=== PATIENT | female | born 1925 | race Caucasian/White ===

== ENCOUNTER 2016-04-17 13:07 | Inpatient (IN) | payer MEDICARE, BC ==
[~2016-04-17] VITALS: Ht 160 cm; Wt 90.7 kg
[2016-04-17] MEDS ORDERED: OMEPRAZOLE20 M1 PO (13:24)
[2016-04-17] MEDS ORDERED: ZITHROMAX250 MG PO (13:24)
[2016-04-17] MEDS ORDERED: NAMENDA10 MG PO (13:25)
[2016-04-17] MEDS ORDERED: SYMBICORT 80-10.2 GM INH (13:25)
[2016-04-17] MEDS ORDERED: GLUCOPHAGE500 MG PO (13:26)
[2016-04-17] MEDS ORDERED: K-TAB10 MEQ PO (13:26)
[2016-04-17] MEDS ORDERED: PRAVACHOL40 MG PO (13:27)
[2016-04-17] MEDS ORDERED: COZAAR100 MG PO (13:28)
[2016-04-17] MEDS ORDERED: FUROSEMIDE40 MG PO (13:29)
[2016-04-17] MEDS ORDERED: LANTUS INSULIN10 ML SC (13:30)
--- NOTE | 2016-04-17 15:37 | NUR ---
PT IS ALERT. NO SS OF DISTRESS AT THIS TIME. WLL CONTINUE TO MONITOR.
[2016-04-17 15:41] VITALS: BP 141/52; BMI 35.5
[2016-04-17 15:49] LABS: BASOPHILS 1.3 % (0.0-2.0); EOSINOPHILS 11.3 % (0-7); HEMATOCRIT 23.4 % (36.0-48.0); IMMATURE GRANULOCYTES 0.5 % (0-5); LYMPHOCYTES 24.1 % (15-50); MCHC 27.8 g/dL (31.0-37.0); MCV 60.3 fL (80.0-100.0); MEAN PLATELET VOLUME 9.4 fL (7.4-10.4); MONOCYTES 16.5 % (2-11); NEUTROPHILS 46.3 % (40-80); RBC 3.88 10x6/uL (4.00-5.40); WBC 5.6 10x3/uL (4.8-10.8)
[2016-04-17 15:51] LABS: HEMOGLOBIN 6.5 g/dL (12-16); MCH 16.8 pg (26.0-34.0); PLATELET COUNT 346 10x3/uL (130-400)
[2016-04-17 16:09] LABS: ALBUMIN 3.4 g/dL (3.4-5.0); ANION GAP 14.8 mmol/L (8-16); BILIRUBIN - TOTAL 0.33 mg/dL (0.2-1.3); CALCIUM 9.1 mg/dL (8.5-10.1); CARBON DIOXIDE 26.7 mmol/L (21.0-32.0); CREATININE - SERUM 1.2 mg/dL (0.6-1.3); POTASSIUM - SERUM 4.5 mmol/L (3.5-5.1); PROTEIN - SERUM 7.8 g/dL (6.4-8.2)
[2016-04-17 16:31] VITALS: BP 141/52
--- NOTE | 2016-04-17 19:20 | NUR ---
RESUMED CAR OF PT, FAMILY AT BED SIDE, 02-2L PRN, [id number], WILL TRANSFUSE 2 UNITS OF PRBC, DENIES ANY NEEDS,CALL LIGHT IN REACH, WILL CONTINUE TO MONITOR
[2016-04-17 20:00] VITALS: BP 102/66
[2016-04-17 21:57] LABS: HEMATOCRIT 22.9 % (36.0-48.0)
[2016-04-17 22:00] LABS: HEMOGLOBIN 6.4 g/dL (12-16)
--- NOTE | 2016-04-17 22:54 | NUR ---
KATIE WILLINGHAM, STARTED FIRST UNIT OF BLOOD. VITALS ARE STABLE, WILL CONTINUE TO MONITOR
--- NOTE | 2016-04-17 22:54 | NUR ---
1ST UNIT OF PRBCS INITIATED. VSS, CALL LIGHT IN REACH. FAMILY AT BEDSIDE. WILL CONTINUE TO MONITOR.
[2016-04-18] VITALS: BP 117/60
--- NOTE | 2016-04-18 03:36 | NUR ---
NARROW GAUGE ENGINEER AT BEDSIDE TO OBTAIN VITALS, CALL LIGHT IN REACH. WILL CONTINUE WITH PLAN OF CARE.
[2016-04-18 04:00] VITALS: BP 162/70
[2016-04-18 06:03] LABS: BASOPHILS 0.5 % (0.0-2.0); EOSINOPHILS 10.5 % (0-7); IMMATURE GRANULOCYTES 0.7 % (0-5); LYMPHOCYTES 22.8 % (15-50); MCHC 29.7 g/dL (31.0-37.0); MEAN PLATELET VOLUME 9.6 fL (7.4-10.4); NEUTROPHILS 50.5 % (40-80); PLATELET COUNT 313 10x3/uL (130-400); RBC 4.33 10x6/uL (4.00-5.40); RDW 23.1 % (11.5-14.5); WBC 5.9 10x3/uL (4.8-10.8)
--- NOTE | 2016-04-18 06:22 | NUR ---
BLOODSUGAR WAS 172, PT ONLY WANT TO TAKE LANUS @ 1176
[2016-04-18 06:31] LABS: % SATURATION 70 % (15-55); IRON 422 ug/dl (35-150); TOTAL IRON BIND CAPACITY 602 ug/dl (260-445); UNSAT IRON BIND CAPACITY 180 ug/dl (150-375)
[2016-04-18 06:36] LABS: INR 1.09 (0.85-1.17); PROTIME 13.9 SECONDS (11.6-15.0)
[2016-04-18 06:39] LABS: HEMATOCRIT 27.9 % (36.0-48.0); HEMOGLOBIN 8.3 g/dL (12-16); MCH 19.2 pg (26.0-34.0); MCV 64.4 fL (80.0-100.0)
[2016-04-18 07:02] LABS: ALBUMIN 3.2 g/dL (3.4-5.0); ANION GAP 15.3 mmol/L (8-16); BILIRUBIN - TOTAL 1.92 mg/dL (0.2-1.3); CARBON DIOXIDE 24.3 mmol/L (21.0-32.0); CREATININE - SERUM 1.2 mg/dL (0.6-1.3); PROTEIN - SERUM 7.9 g/dL (6.4-8.2)
[2016-04-18 07:11] LABS: POTASSIUM - SERUM 3.6 mmol/L (3.5-5.1)
--- NOTE | 2016-04-18 07:54 | NUR ---
AM ROUNDING DONE WITH MARKETING OFFICER NURSE. DAUGHTER AT BEDSIDE, ON ROOM AIR. NS INFUSING TO RIGHT AC AT 30 CC/HR WITHOUT PROBLEMS. BOX ALARM IN USE CORRECTLY. PATIENT TO RECEIVE ONE UNIT OF BLOOD TODAY. DAUGHTER REPORTS THAT PATIENT HAS A HX OF DEMENTIA. WILL MONITOR.
--- NOTE | 2016-04-18 08:22 | NUR ---
DR EDMOND OFFICE CALLED, SPOKE WITH ARASH REGARDING ATIVAN BEOFRE BLOOD. SHE IS TALK TO HIM AND THEN CALL ME BACK.
--- NOTE | 2016-04-18 09:03 | NUR ---
GERMAINE TORRES FROM DR EDMOND OFFICE.
[2016-04-18 09:52] VITALS: BP 97/73
--- NOTE | 2016-04-18 10:12 | NUR ---
BLOOD STARTED SLOWLY INFUSING AT 125 CC/HR. DAUGHTER AT BEDSIDE.
--- NOTE | 2016-04-18 13:01 | NUR ---
UNIT OF BLOOD FINISHED WITH NO SIDE EFFECTS. FAMILY AT BEDSIDE. WILL COTNINUE TO MONITOR.
[2016-04-18 13:19] VITALS: BP 121/80
[2016-04-18 13:48] VITALS: Ht 160 cm; Wt 90.7 kg
--- NOTE | 2016-04-18 15:10 | NUR ---
IV RESITED TO RIGHT FOREARM WITH 22G X 1 STICK. RIGHT AC WAS LEAKING WHEN PATIENT GOT BACK FROM THE RESTROOM.
[2016-04-18 16:38] VITALS: BP 173/78
[2016-04-18 16:58] LABS: BASOPHILS 1.5 % (0.0-2.0); EOSINOPHILS 6.9 % (0-7); HEMATOCRIT 29.8 % (36.0-48.0); HEMOGLOBIN 8.9 g/dL (12-16); IMMATURE GRANULOCYTES 1.6 % (0-5); LYMPHOCYTES 29.4 % (15-50); MCHC 29.9 g/dL (31.0-37.0); MONOCYTES 14.1 % (2-11); NEUTROPHILS 46.5 % (40-80); PLATELET COUNT 271 10x3/uL (130-400); RBC 4.46 10x6/uL (4.00-5.40); RDW 23.9 % (11.5-14.5); WBC 5.5 10x3/uL (4.8-10.8)
[2016-04-18 16:59] LABS: MCV 66.8 fL (80.0-100.0)
--- NOTE | 2016-04-18 17:35 | NUR ---
SITTING ON SIDE OF BED EATING SUPPER. FAMILY AT BEDSIDE. WILL CONTINUE TO MONITOR. WILL PLACE BOX ALARM ON WHEN FAMILY NOT IN ROOM.
--- NOTE | 2016-04-18 18:17 | NUR ---
PERMITS FOR EGD FOR TOMORROW SIGNED AND WITNESSED.
--- NOTE | 2016-04-18 19:56 | NUR ---
RESUME CARE OF PT, 02-2L, IV-RFA-NS@ 30, FAMILY AT BEDSIDE, DENIES ANY NEEDS, CALL LIGHT IN REACH, WILL CONTINUE TO MONITOR
[2016-04-18 21:44] VITALS: BP 187/69
[2016-04-19 00:35] VITALS: BP 173/65
--- NOTE | 2016-04-19 03:07 | NUR ---
SLEEPING, FAMILY AT BEDSIDE, NPO SINCE MIDNIGHT FOR EGD IN AM, CALL LIGHT IN REACH
[2016-04-19 04:36] VITALS: BP 168/68
--- NOTE | 2016-04-19 07:50 | NUR ---
AM ROUNDING- PT LAYING IN BED ON LEFT SIDE WITH EYES CLOSED RESTING. DAUGHTER IS AT BEDSIDE. FSBS ACHS, 157 THIS AM THAT WAS NOT COVERED BECAUSE PT IS NPO FOR PROCEDURE AND WILL NOT EAT BREAKFAST. NPO CURRENTLY FOR EGD THIS AM, CONSENTS ARE SIGNED AND IN CHART. ON 02 AT 2L VIA NC. IV SEEN TO RIGHT FOREARM THAT IS CURRENTLY SALINE LOCKED. NO MONITOR. PER REPORT FROM SAUSAGE INSPECTOR NURSE WIN, THERE ARE INSTRUCTIONS TO INFUSE PRBC IF LEVELS FALL BELOW A CERTAIN NUMBER. AMELIA WALDEN REPORTS THAT SHE SPOKE WITH DR. AWAD AND DR. AWAD STATED TO HOLD OFF ON INFUSING PRBC UNTIL AFTER PTS PROCEDURE. WILL DO STATED IN REPORT AND CONTINUE TO MONITOR AND CONTINUE WITH PLAN OF CARE.
[2016-04-19 07:52] LABS: BASOPHILS 0.5 % (0.0-2.0); EOSINOPHILS 10.4 % (0-7); HEMATOCRIT 30.8 % (36.0-48.0); HEMOGLOBIN 9.2 g/dL (12-16); IMMATURE GRANULOCYTES 1.8 % (0-5); LYMPHOCYTES 32.8 % (15-50); MCHC 29.9 g/dL (31.0-37.0); MCV 66.8 fL (80.0-100.0); MEAN PLATELET VOLUME 9.5 fL (7.4-10.4); MONOCYTES 15.1 % (2-11); NEUTROPHILS 39.4 % (40-80); PLATELET COUNT 281 10x3/uL (130-400); RBC 4.61 10x6/uL (4.00-5.40); RDW 24.3 % (11.5-14.5); WBC 5.5 10x3/uL (4.8-10.8)
[2016-04-19 08:00] VITALS: BP 154/68
[2016-04-19 08:15] LABS: ANION GAP 15.2 mmol/L (8-16); CALCIUM 9.8 mg/dL (8.5-10.1); CARBON DIOXIDE 24.7 mmol/L (21.0-32.0); CREATININE - SERUM 1.1 mg/dL (0.6-1.3); POTASSIUM - SERUM 3.9 mmol/L (3.5-5.1)
--- NOTE | 2016-04-19 09:34 | NUR ---
EKG DONE REQUESTED BY GI LAB AND PLACED IN CHART. PTS PRE-OP MEDICATION (PEPCID) GIVEN ORDERED AND REQUESTED BY GI LAB. IV FLUIDS HANGING REQUESTED. WILL CONTINUE TO MONITOR AND AWAIT GI TO COME GET PT.
--- NOTE | 2016-04-19 10:01 | NUR ---
PT TO GI LAB VIA WHEELCHAIR.
--- NOTE | 2016-04-19 11:05 | NUR ---
1050- PT BACK FROM GI LAB VIA BED. PT IS COUGHING OCCASIONALLY. FREQUENT VITALS STARTED. DAUGHTER IS AT BEDSIDE. WILL CONTINUE TO MONITOR.
--- NOTE | 2016-04-19 11:11 | HP ---
PATIENT: FERCHO WHITFIELD MEDICAL RECORD: [id number] ACCOUNT: [id number] LOCATION:[address] : [birth year] ADMISSION DATE: 04/18/16 HISTORY AND PHYSICAL EXAMINATION REASON FOR ADMISSION: Cough, congestion and fatigue. HISTORY OF PRESENT ILLNESS: The patient is an 89-year-old female with history of Alzheimer's dementia and COPD. She uses O2 at night to sleep. Her daughter states she has had cough and congestion for the last several days. She has been on antibiotics since Thursday, i.e., Zithromax, from Dr. Haynes. She had not improved, had low-grade fever and today, became a little lethargic. She was brought to the office for this reason. Her O2 sat was 90% on room air and she had expiratory wheezes bilaterally. Also noted, her blood pressure was 110/60 and she appeared anemic. She was directly admitted to the hospital for further evaluation. She denies any recent change in stools, vomiting blood, or dyspepsia. Denies history of hematuria. PAST MEDICAL HISTORY: Dementia, requiring full care by her daughter, type 2 diabetes mellitus, diverticulosis of the colon without hemorrhage in the past, dyslipidemia, chronic peripheral edema, COPD, essential hypertension, lumbar disc disease, ischemic optic neuropathy, postmenopausal, nontoxic solitary thyroid nodule, benign, osteoarthritis, chronic renal insufficiency, and history of sciatica. PAST SURGICAL HISTORY: Laparoscopic cholecystectomy. SOCIAL HISTORY: , lives with her daughter and she requires full care by her daughter. Nonsmoker, nondrinker, lifelong. ALLERGIES: PENICILLIN, CODEINE, HYDROCODONE, LOTENSIN, PRAVASTATIN, TRAMADOL, ZOLOFT. FAMILY HISTORY: Father had hypertension. HOME MEDICATIONS: Aspirin 81 mg a day, amlodipine 5 mg daily, fish oil daily, gemfibrozil 600 mg b.i.d., Lantus SoloSTAR insulin 15 units subQ with breakfast, Lasix 40 mg q.a.m., losartan 100 mg p.o daily, memantine 10 mg p.o. b.i.d., metformin 500 mg p.o. b.i.d., potassium chloride ER 10 mEq t.i.d., Prilosec 20 mg a day, Symbicort ____ 2 puffs b.i.d., vitamin C 500 mg daily, and Tessalon Perles p.r.n. REVIEW OF SYSTEMS: GENERAL: She has not been feeling well for over a week. She has been tired with cough and poor appetite. HEENT: No recent visual change, sinus congestion, or sore throat. She has had chronic trouble with hearing. RESPIRATORY: As above, has been more short of breath for the last several days with cough productive of yellow sputum. GASTROINTESTINAL: No nausea, vomiting, change in stools, or blood per rectum. ENDOCRINE: Denies polyuria, polydipsia, heat or cold intolerance. MUSCULOSKELETAL: Has chronic lumbago with occasional sciatica in the right leg to the knee. She walks best with a walker. GENITOURINARY: Has mild stress incontinence. No dysuria. GYNECOLOGIC: No vaginal bleeding. HISTORY AND PHYSICAL [id number] FERCHO WHITFIELD PSYCHIATRIC: Denies depressed mood. NEUROLOGIC: She has no history of stroke, but has had advancing Alzheimer dementia over the last 4-5 years. Denies history of seizures or head injury. PHYSICAL EXAMINATION: VITAL SIGNS: Her height is 5 feet 3 inches, weight is 200 pounds. Temperature is 99.7 Fahrenheit orally, pulse 95, respirations 18, blood pressure 141/52 with a sat 95% on room air. HEENT: Normocephalic. Eyes are clear. Pupils are reactive. Her palpebral conjunctivae are pale. Oropharynx unremarkable except for mildly dry mucous membranes. NECK: Supple, without JVD. CHEST: Shows expiratory wheezes in the upper lobes without rales. No retractions. HEART: Regular rate and rhythm. ABDOMEN: Soft, obese, and nontender throughout. Bowel sounds are active. RECTAL: No stool in the vault. EXTREMITIES: She has 2+ chronic bipedal edema, 1+ pretibial edema of the knees bilaterally. SKIN: Shows minimal ecchymoses. NEUROLOGIC: Oriented to person, but not to place and time. She has no motor deficits appreciated. She walks wide based with assistance or a rolling walker. LABORATORY DATA: Shows a white count 6500 with normal diff, her H&H is 6.5 and 23.4 with a platelet count of 346,000. BUN and creatinine were 29 and 1.2, and glucose is 181, nonfasting. Liver functions are normal. Urinalysis is pending. Blood gases pH 7.4, pCO2 of 35, pCO2 of 75 on room air. DIAGNOSTIC DATA: Chest x-ray shows emphysematous changes, no pneumothorax noted and chronic interstitial lung disease is appreciated. ASSESSMENT: 1. Symptomatic anemia, etiology unknown. 2. Osteoarthritis. 3. Lumbar disc disease. 4. O2 dependent chronic obstructive pulmonary disease. 5. Morbid obesity. 6. Diabetes mellitus. 7. Hyperlipidemia. 8. History of mild chronic renal insufficiency. 9. History of nontoxic solitary thyroid nodule. 10. Bronchitis. PLAN: The patient will be admitted, w will be performing anemia workup. Check stool for occult blood. Continue pulmonary updrafts, IV antibiotics, GI consult as indicated. TRANSINT:[id number] Voice Confirmation ID: [id number] DOCUMENT ID: [id number] HISTORY AND PHYSICAL [id number] FERCHO WHITFIELD TIMOTHY MD at 1111 CC: [id number] DICTATION DATE: 04/17/161817 CONE TRUCKER: 04/17/16 1920 ADM IN [place] [id number] [place] [id number]
--- NOTE | 2016-04-19 11:54 | NUR ---
DR. EDMOND ON UNIT. INFORMED HIM OF WHAT FELT TO BE NODULES IN BILATERAL BREAST WHEN DOING DAILY SHIFT ASSESSMENT. DR. EDMOND ASSESSED PT IN ROOM. NO NEW ORDERS RECEIVED. WILL CONTINUE TO MONITOR.
[2016-04-19 12:00] VITALS: BP 175/80
[2016-04-19 16:00] VITALS: BP 162/66
--- NOTE | 2016-04-19 17:02 | NUR ---
PT LAYING IN BED ON LEFT SIDE WITH EYES CLOSED RESTING. DAUGHTER IS AT BEDSIDE. NO NEED AT CURRENT TIME. WILL CONTINUE TO MONITOR.
--- NOTE | 2016-04-19 19:25 | NUR ---
RECEIVED REPORT, 2L, IV-RFA-SL, FAMILY AT BEDSIDE, CALL LIGHT IN REACH, BED IS LOW, SRX2, WILL CONTINUE TO MONITOR
[2016-04-19 20:30] VITALS: BP 181/78
[2016-04-20 00:30] VITALS: BP 161/72
--- NOTE | 2016-04-20 00:56 | NUR ---
APPARATUS ENGINEERING TECHNOLOGIST AT BEDSIDE FOR VS, NEEDS ADDRESSED. CALL LIGHT IN REACH. WILL CONT TO MONITOR.
[2016-04-20 04:30] VITALS: BP 161/75
--- NOTE | 2016-04-20 05:14 | NUR ---
PT SLEEPING, FAMILY AT BEDSIDE, CALL LIGHT IN REACH, WILL CONTINUE TO MONITOR
--- NOTE | 2016-04-20 07:23 | NUR ---
AM ROUNDING- PT LAYING IN BED ON RIGHT SIDE WITH EYES CLOSED RESTING. DAUGHTER IS AT BEDSIDE. NO MONITOR. ON 02 AT 2L VIA NC. IV SEEN TO RIGHT FOREARM THAT IS CURRENTLY SALINE LOCKED. FSBS ACHS, 152 THIS AM THAT WAS NOT COVERED BY BRICK AND BLOCKER AID LABOR NURSE PER PTS DAUGHTER REQUEST. PER REPORT PT HAS HX OF ALZHEIMERS. NO NEED AT CURRENT TIME. WILL CONTINUE TO MONITOR AND CONTINUE WITH PLAN OF CARE.
[2016-04-20 08:00] VITALS: BP 155/60
[2016-04-20 12:00] VITALS: BP 175/73
[2016-04-20] MEDS ORDERED: PEPCID20 MG PO (14:35)
--- NOTE | 2016-04-20 15:23 | NUR ---
D/C PAPERWORK EXPLAINTED TO PT AND PTS DAUGHTER. SIGNED BY PTS DAUGHTER AND PLACED IN CHART. EDDY LARSEN IS TAKING PT DOWN BY WHEELCHAIR WITH FAMILY.
== END 2016-04-20 15:27 | disposition home or self-care (01) | DRG 812 ==
LOC: D.M2 13:07 → OBSVTIME 14:58 → D.M2 04-18 15:28
PROVIDERS: Internal Medicine Gastroenterology; ADMIT Family Medicine
PROC: 0DB68ZX Excision of Stomach, Via Natural or Artificial Opening Endoscopic, Diagnostic (ICD-10-PCS; principal; 2016-04-19 10:00)
DX: D50.9 Iron deficiency anemia, unspecified (principal); J44.1 Chronic obstructive pulmonary disease with (acute) exacerbation; G30.9 Alzheimer's disease, unspecified; F02.80 Dementia in other diseases classified elsewhere, unspecified severity, without behavioral disturbance, psychotic disturbance, mood disturbance, and anxiety; Z99.81 Dependence on supplemental oxygen; E78.5 Hyperlipidemia, unspecified; K57.90 Diverticulosis of intestine, part unspecified, without perforation or abscess without bleeding; I10 Essential (primary) hypertension; Z78.0 Asymptomatic menopausal state; M51.9 Unspecified thoracic, thoracolumbar and lumbosacral intervertebral disc disorder; E66.01 Morbid (severe) obesity due to excess calories; K20.9 Esophagitis, unspecified; K22.2 Esophageal obstruction; K44.9 Diaphragmatic hernia without obstruction or gangrene; K29.70 Gastritis, unspecified, without bleeding; K29.80 Duodenitis without bleeding; Z68.35 Body mass index [BMI] 35.0-35.9, adult